=== PATIENT | female | born 1985 | race American Indian/Alaskan Native ===

== ENCOUNTER 2016-11-19 15:20 | Emergency (ER) | payer MEDICAID ==
[2016-11-19 16:07] VITALS: BMI 28.3
[2016-11-19 17:10] LABS: RBC URINE < 1 /hpf (0-3); URINE BACTERIA RARE (<OCC); URINE BILIRUBIN NEGATIVE (NEGATIVE); URINE BLOOD NEGATIVE (NEGATIVE); URINE COLOR Yellow (YELLOW); URINE GLUCOSE (UA) NORMAL (Normal); URINE KETONE NEGATIVE (NEGATIVE); URINE LEUKOCYTE ESTERASE NEG Leu/uL (Negative); URINE PROTEIN NEGATIVE (NEGATIVE); URINE UROBILINOGEN NORMAL mg/dL (0.2-1.0); WBC URINE < 1 /hpf (0-5)
--- NOTE | 2016-11-19 18:26 | OBHP ---
Datetime: 11/19/2016 18:20 IP Adm Impression: , intrauterine ; No Active Labor IP Chief Complaint Other: pelvic pressure IP Adm Impression Other: no care Admit Comment, IP Provider: chief complaint-s/p fall HPI 31 y/o at 30 wga by lmp(unsure) with c/o vaginal pressure.Deneis abdominal pain, vaginal bleeding Denies nausea, vomiting, headache, chest pain, shortness of breath course no care PMH denies PSH csection OBGYN HX ; delivery at 34 weeks via csection Social hx hx of tobacco use prior to prergnancy Exam see exam section A/P 31y/o at 30 wga by lmp -ua nega for nitrtes and le -cervix closed -ultrasound done.patient left AMA due to children's tutor nursery issues Pelvic Type - PN: Adequate Extremities - PN: Normal Abdomen - PN: Normal Back - PN: Normal Lungs - PN: Normal Heart - PN: Normal Neurologic - PN: Normal General - PN: Normal FHR - Baseline A Provider: 130 Contraction Comments Provider: none Vital Signs Provider: Reviewed; Within Normal Limits IP Chief Complaint: Other NICHD Variability Prov Fetus A: Moderate 6-25bpm Dilatation, Provider: 0 Effacement, Provider: thick Station, Provider: -3 Genitourinary Exam: Normal DTRs - PN: Normal
--- NOTE | 2016-11-19 18:27 | US ---
OB , limited ultrasound Comparison: None available Technique: Real-time ultrasound was performed through the pelvis. Findings: There is a single living fetus in cephalic presentation. Amniotic fluid volume is within normal limits. Anterior placenta. The placenta is not previa. There are no adnexal masses or cysts evident. Cervix length measures approximately 3.3 cm. Measurements and calculations: Fetus has a composite sonographic age of 28 weeks 0 days. This calculation is based on the biparietal diameter, head circumference, abdominal circumference, and femur length. Estimated heart rate 156.6 beats per min. KATJA measures approximately 29.5 cm. Impression: Single living fetus with a composite sonographic age of 28 weeks 0 days. Estimated heart rate 156.6 beats per min. KATJA measures approximately 29.5 cm, (Polyhydramnios greater than 25 cm). reservation manager consultation and follow-up as indicated. The study was performed for emergent evaluation, and the whole anatomic survey of the fetus was not performed. This should be performed on an outpatient elective basis as clinically warranted.
== END 2016-11-19 18:15 | disposition left against medical advice (07) ==
LOC: C.EROB 15:20
DX: O9A.213 Injury, poisoning and certain other consequences of external causes complicating pregnancy, third trimester (principal); R10.2 Pelvic and perineal pain; Z3A.30 30 weeks gestation of pregnancy; O09.33 Supervision of pregnancy with insufficient antenatal care, third trimester

== ENCOUNTER 2017-01-29 20:51 | Inpatient (IN) | payer MEDICAID ==
[2017-01-29 21:29] VITALS: BMI 29.2
[2017-01-29] MEDS ORDERED: cefOXitin IV 2 gm in Dextrose 2 GM/50 ML BAG IVPB ONE ×2 (22:17→22:45)
[2017-01-29] MEDS ORDERED: Sodium Citrate/Citric Acid 15 ml Sol PO ONE (22:17)
[2017-01-29 22:29] LABS: HEMATOCRIT 38.1 % (34.0-47.0); MEAN CELL VOLUME 86.6 fL (81.0-99.0); MEAN CORPUSCULAR HEMOGLOBIN 28.1 pg (27.0-31.0); MEAN CORPUSCULAR HGB CONC 32.5 g/dL (33.0-37.0); MEAN PLATELET VOLUME 9.4 fL (7.2-11.7); RED CELL DISTRIBUTION WIDTH 13.6 % (11.5-14.5); WHITE BLOOD COUNT 10.2 K/uL (4.8-10.8)
[2017-01-29] MEDS ORDERED: Lactated Ringer's 1,000 ML IV SCH ×2 (22:30)
[2017-01-29] MEDS ORDERED: Sodium Citrate/Citric Acid 15 ml Sol ONE (22:34)
[2017-01-29 22:38] LABS: CHLORIDE 102 mmol/L (98-107)
[2017-01-29 22:39] LABS: RBC URINE 45 /hpf (0-3); SODIUM 135 mmol/L (132-148); URINE BACTERIA OCC (<OCC); URINE BILIRUBIN NEGATIVE (NEGATIVE); URINE COLOR Yellow (YELLOW); URINE GLUCOSE (UA) NORMAL (Normal); URINE KETONE NEGATIVE (NEGATIVE); URINE LEUKOCYTE ESTERASE 1+ Leu/uL (Negative); URINE PROTEIN 1+ mg/dL (NEGATIVE); WBC URINE 24 /hpf (0-5)
[2017-01-29 22:41] LABS: ALB/GLOB RATIO 1.1 (1.0-2.1); ALKALINE PHOSPHATASE 180 U/L (38-126); AST/SGOT 19 U/L (14-36); BILIRUBIN,TOTAL 0.4 mg/dL (0.2-1.3); BLOOD UREA NITROGEN 9 mg/dL (7-17); CARBON DIOXIDE 22 mmol/L (22-30); GFR AFRICAN-AMERICAN > 60; GLUCOSE,RANDOM 84 mg/dL (65-105); TOTAL PROTEIN 6.5 g/dL (6.3-8.3); URINE BLOOD MODERATE (NEGATIVE)
[2017-01-29 22:42] LABS: ALT/SGPT 18 U/L (9-52); CALCIUM 9.3 mg/dl (8.6-10.4)
[2017-01-29] MEDS ORDERED: Morphine 1 mg/ml preservative-free Inj(Duramorph) ONE (22:53)
[2017-01-29] MEDS ORDERED: ePHEDrine 50 mg/ml Inj ONE (22:55)
--- NOTE | 2017-01-29 22:56 | OBADHP ---
Datetime: 01/29/2017 21:45 IP Chief Complaint Other: Previous C/S Admit Comment, IP Provider: 31 y.o. , LMP unsure, NARESH 02/10/17, EGA 38w 2d c/o SROM 1400 hour s; was waiting for onset of contraction, as she initially desired a TOLAC. When this did not occur, d ecided to come in for evaluation. In Ob-ED, reports (+) AFM; denies VB or Ctx. care: Dr. Kristina nieto; denies any issues. P Ob: 2013, C/S at 37 weeks; "baby wasn't moving" female, 3lb; [facility]. transferre d to [facility]; was in NICU x 2 weeks. Currently, alive and well. Spont Ab x 4, all < 12 weeks ; no D_C. VTOP x 1 @ 16 weeks; 2d procedure with D_E; no complications P CORPSMAN: 15 x monthly x 5 PMH: denies PSH: C/S; D_E NKDA Meds: PNV - QD Soc Hx: denies tobacco, illicit drug or EtOH use. With FOB x 2 years; lives wiht him and her daug hter. 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 Fam Hx: Mother alive 46 y.o. Father alive 52 y.o. - both, no med issues. No known fam h/o cancer P.E.: as above. WD in NAD. Awake, alert, oriented to time, person and place. Pleasant and coopera tive Assessment: 31 y.o. [id number], 38w 2d, prev C/S; PROM. Patient counseled on R/B/C of trial of labor; at time of mention of possible uterine rupture changed her mind. and desires to proceed with "what i s the safest for the baby", and now desires repeat C/S. R/B/C of repeat C/S discussed. All of her qu estions, and those of the FOB were answered. Consents were sigend, dated, signed, witnessed and plac ed in the chart. Soon after this, variable deceleratoin noted. Intrauterine resuscitative measures w ere carried out with good recovery. Traicng now Category 1. Patient last ate at 1800 hours: a few fr ies and chicken wings. Patient is clinically stable. Plan: 1) Admit 2) NPO 3) Admission labs, incl labs 4) IVFs 5) Continuous EFM 6) Notify anesthesia 7) Notify peds 8) Abdominal prep and shave 9) Maza to gravity 10) Mefoxin, protection agent to O.R. 11) Patient protection agent to O.R. - Dr. Carson is aware Pelvic Type - PN: Adequate Extremities - PN: Normal Abdomen - PN: Normal Back - PN: Normal Breast - PN: Not Done Lungs - PN: Normal Heart - PN: Normal Thyroid - PN: Not Done Neurologic - PN: Normal HEENT - PN: Normal General - PN: Normal Presentation-Admit: Vertex FHR - Baseline A Provider: 130 Amniotic Fluid Color, Provider: Clear Membranes, Provider: Ruptured Contraction Comments Provider: infrequent Comments, ACOG Physical Exam: Abdomen: Gravid. Soft. Well-healed Pfannenstiel scar. Fundal height 3 7 cm Perineum: wet. Spec: (+) pooling; (+) nitrazine All other systems reviewed and are negative Gestation - Est Wks by US: 38w 2d Pool Provider: Positive Nitrazine Provider: Positive Vital Signs Provider: Reviewed; Within Normal Limits IP Chief Complaint: Uterine contractions; Suspected ruptured membranes FHR Category Provider Fetus A: Category I NICHD Decel Fetus A IP Provider: Variable Dilatation, Provider: 2 Effacement, Provider: 30 Station, Provider: -3 Genitourinary Exam: Normal DTRs - PN: Not Done EGA AdmitDate IP: 38.2 IP Adm Impression: Term, intrauterine ; No Active Labor; Ruptured Membranes IP Admit Plan: Admit to unit; Initiate Section protocol Datetime: 11/19/2016 18:20 IP Adm Impression Other: no care NICHD Variability Prov Fetus A: Moderate 6-25bpm
[2017-01-29] MEDS ORDERED: Oxytocin 20 units in LR 2,000 ML IV ONE (23:08)
[2017-01-30] MEDS ORDERED: DiphenhydrAMINE 50 mg/ml Inj ONE (00:36)
--- NOTE | 2017-01-30 01:01 | PCM.SURG1 ---
Surgeon's Initial Post Op Note - Surgeon's Notes Surgeon: Dr Carson Logging Tractor Operator Swamp: dR Benitez Type of Anesthesia: Spinal Anesthesia Administered By: dR Zee Pre-Operative Diagnosis: IUP at term with Previous Section, SROM Operative Findings: Live female infant with BW of 1925gms(4Ibs 4ozs), APGARs 9 and 9, delivered in cephalic presentation, fundal placenta. Normal looking uterus, fallopian tubes and ovaries. IVF intake- 1500mls. EBL- 600mls. Urine Output- 300mls Post-Operative Diagnosis: Same as preop diagnosis Operation Performed: Repeat Section Specimen/Specimens Removed: Umbilical cord blood Estimated Blood Loss: EBL {In ML}: 600 Post-Op Condition: Good Date of Surgery/Procedure: 01/30/17 Time of Surgery/Procedure: 01:02
--- NOTE | 2017-01-30 01:17 | OBDS ---
DELIVERY PERSONNEL Delivery Doctor: Karin Carson MD Scrub Nurse: Jesika Duque OBT Beading Sawyer: Leia Kaur RN Anesthesiologist: Dr Zee Resident: n/a MATERNAL INFORMATION Delivery Anesthesia: Spinal Medications in Delivery: pitocin 20 units Estimated Blood Loss (ml): 600 Placenta Cultured: No Maternal Complications: None Provider Comments: Uncomplicated repeat section with delivery of a viable female baby 1925g ms , of 9 and 9. LABOR SUMMARY EDC: 02/10/2017 00:00 MEMBRANES Membranes Rupture Method: Spontaneous Rupture of Membranes: 01/29/2017 14:00 Length of Rupture (hrs): 10.02 STAGES OF LABOR Stage 3 hrs: 0 Stage 3 min: 2 CSECTION DELIVERY Primary Indication: Repeat Elective Secondary Indication: Repeat Elective CSection Urgency: Elective CSection Incidence: Repeat Labor: Labor Elective: Elective CSection Incision: Lower Uterine Transverse BABY A INFORMATION Infant Delivery Date/Time: 01/30/2017 00:01 Method of Delivery: Born in Route : No : N/A Forceps: N/A Vacuum Extraction: N/A Shoulder Dystocia : No SHOULDER DYSTOCIA BABY A Delivery Date/Time: 01/30/2017 00:01 PRESENTATION/POSITION BABY A Presentation: Cephalic Cephalic Presentation: Vertex Vertex Position: Left Occipital Anterior Breech Presentation: N/A PLACENTA INFORMATION BABY A Placenta Delivery Time : 01/30/2017 00:03 Placenta Method of Delivery: Manual Removal Placenta Status: Delivered SCORES BABY A Heart Rate 1 min: >100 bpm Resp Effort 1 min: Good Cry Reflex Irritability 1 min: Cough or Sneeze or Pulls Away Muscle Tone 1 min: Active Motion Color 1 min: Body [place], Extremities Blue Resuscitation Effort 1 min: Tactile Stimulation SCORE 1 MIN: 9 Heart Rate 5 min: >100 bpm Resp Effort 5 min: Good Cry Reflex Irritability 5 min: Cough or Sneeze or Pulls Away Muscle Tone 5 min: Active Motion Color 5 min: Body [place], Extremities Blue Resuscitation Effort 5 min: N/A SCORE 5 MIN: 9 INFORMATION BABY A Gestational Age at Delivery: 38.2 Gestational Status: Term Outcome : Liveborn Condition : Stable Sex: Female IDENTIFICATION/MEDS BABY A ID Band Number: [id number] ID Band Location: Left Leg; Left Arm Sensor Applied: Yes Sensor Number: [id number] Sensor Location : Cord Clamp Vitamin K Given : Not Given Erythromycin Given: Not Given WEIGHT/LENGTH BABY A Infant Birthweight (gms): 1925 Weight (lb): 4 Infant Weight (oz): 4 Length Inches: 17.00 Length cms: 43.2 CORD INFORMATION BABY A No. Cord Vessels: 3 Nuchal Cord : N/A Cord Blood Taken: Yes Infant Suction: Mouth; Nose ASSESSMENT BABY A Infant Complications: None Physical Findings at Delivery: Within Normal Limits Infant Respirations: Appears Normal Inspector Tubes/ALS Called : No Infant Care By: Elizabeth Zamudio RN, Dr Melchor Transferred To: [facility]
[2017-01-30] MEDS ORDERED: DiphenhydrAMINE 50 mg/ml Inj IVP PRN (01:22)
--- NOTE | 2017-01-30 05:44 | OP ---
PROCEDURE DATE: 01/30/2017 PREOPERATIVE DIAGNOSIS: Intrauterine at term with a previous section, spontaneous rupture of membranes. POSTOPERATIVE DIAGNOSIS: Intrauterine at term with a previous section, spontaneous rupture of membranes. PROCEDURE DONE: Repeat low transverse section performed on 01/30/2017. SURGEON: Dr. Saman Carson. SHED WORKERS SUPERVISOR: Dr. Steward. Assistance to this procedure was needed for exposure of tissues and help in the delivery of a baby. The public health training assistant remained through the procedure throughout entirely. TYPE OF ANESTHESIA: Spinal. ANESTHESIA ADMINISTERED BY: Dr. Carter Zee. FINDINGS: Live female with weight of 1925 g, scores of 9 in the first and fifth minutes respectively. Delivered in cephalic presentation. Fundal placenta with a light meconium staining of the amniotic fluid. The uterus as well as both fallopian tubes and both ovaries appeared normal. IV FLUID INTAKE: 1500 mL. ESTIMATED BLOOD LOSS: 600 mL. URINE OUTPUT: 300 mL. COMPLICATIONS: There were no complication. DESCRIPTION OF PROCEDURE: After discussing the risks, benefits, and alternatives of the section as a procedure and having all the questions from the patient answered, the patient was sent to the OR with IV running and Maza catheter in place. The patient was sat on the OR table and after adequate spinal anesthesia was put in the supine position with a left lateral tilt. The patient was then prepped and draped in the sterile fashion. A Pfannenstiel skin incision was made through the old Pfannenstiel incisional scar using a scalpel and this incision was extended to the subcutaneous tissues through the rectus fascia where a transverse incision was made. The fascial incision was extended to both sides with the help of a Bovie device. The rectus fascia was then lifted up from the underlying rectus muscles, both superiorly and inferiorly by means of a blunt dissection and a sharp dissection with a Flores scissors. The rectus muscle was in the midline to expose the peritoneum, which was carefully ended using a Metzenbaum scissors and with good visualization of the bladder. Once the abdominal cavity was entered, the vesicouterine fold of peritoneum was identified, was carefully dissected and retracted inferiorly to expose the lower uterine segment. A low-transverse incision into the uterine muscle was made using the scalpel at the lower uterine segment. The scalpel was sent through the myometrial layer where the amniotic membranes were identified. The incision was then extended to both sides in a blunt fashion. The amniotic membranes were ruptured using the pickup forceps where the baby in cephalic presentation was identified and delivered. The mouth and nostrils were bulb suctioned after delivery and the umbilical cord was clamped and cut. The baby was then given to the nurse. Baby cried immediately after . Umbilical cord blood for analysis was obtained at this point and the placenta was manually removed from the uterine cavity. The uterus was then brought out of the abdominal cavity and the uterus cleaned of all debris using dry laparotomy buds. The uterine incision was then closed in two layers using Vicryl #0. The first layer in a ong-yst-zudl fashion and the second layer in a running fashion imbricating the first layer. Once hemostasis was done after repair of the incision, irrigation of the pelvis with warm saline was performed. The uterus was then returned into the abdominal cavity. Once hemostasis was reassured again, attention was turned on to the anterior abdominal wall, which was closed in layers with 2-0 Vicryl for the peritoneum and the rectus muscles. The rectus fascia was brought together by means of #0 Vicryl. The subcutaneous tissue was re-approximated using #2-0 plain. The skin was closed in the subcuticular fashion using #4-0 Biosyn. All counts of instruments, laparotomy pads, and needles used were correct x3 and the patient was sent to the recovery room awake and in stable condition. Saman Carson MD
[2017-01-30] MEDS: cefOXitin IV 2 gm in Dextrose 2 GM/50 ML BAG IVPB SCH ×3 (08:29→23:47)
[2017-01-30] MEDS: Simethicone 80 mg Chewtab PO SCH ×4 (15:06→21:41)
[2017-01-30] MEDS: Prenatal Multivit/Folic Acid/Iron Tab PO SCH (15:07)
[2017-01-31] MEDS: Simethicone 80 mg Chewtab PO SCH ×4 (09:47→21:47)
[2017-01-31] MEDS: Prenatal Multivit/Folic Acid/Iron Tab PO SCH (09:47)
[2017-01-31 11:44] LABS: BASO % 0.2 % (0.0-2.0); EOS # 0.3 K/uL (0.0-0.7); EOS % 2.8 % (0.0-4.0); HEMATOCRIT 36.6 % (34.0-47.0); LYMPH # 1.3 K/uL (1.0-4.3); LYMPH % 12.3 % (20.0-40.0); MEAN CELL VOLUME 87.3 fL (81.0-99.0); MEAN CORPUSCULAR HEMOGLOBIN 28.4 pg (27.0-31.0); MEAN CORPUSCULAR HGB CONC 32.5 g/dL (33.0-37.0); MEAN PLATELET VOLUME 8.8 fL (7.2-11.7); MONO # 0.6 K/uL (0.0-0.8); MONO % 5.4 % (0.0-10.0); NRBC % 0.1 % (0.0-2.0); RED CELL DISTRIBUTION WIDTH 13.6 % (11.5-14.5); WHITE BLOOD COUNT 10.5 K/uL (4.8-10.8)
[2017-01-31 16:03] VITALS: O2SAT 100
--- NOTE | 2017-02-01 08:45 | OBPPN ---
Datetime: 01/30/2017 08:42 PP Pain Prov: Within normal limits PP Nausea Prov: Denies PP Flatus Prov: Yes PP Breasts Prov: Normal PP Heart Prov: Normal PP Lungs Prov: Normal PP Abdomen/Uterus Prov: Normal PP Lochia Prov: Normal PP Vulva/Perineum Prov: Normal PP CVA Tenderness Prov: Normal PP Extremities Prov: Normal PP C/S Incision Prov: Normal PP Progress Prov: Normal PP Comments Phys Exam Prov: Abd: Soft, NT, BS- present Ut- Firm Incision: Clean and dry. PP Impression Prov: Normal progression PP Plan Prov: Continue present management PP Progress Note Prov: S/P Repeat Section, POD #1, Clinically Stable. Plan: Continue care. Vital Signs Provider PP: Reviewed
--- NOTE | 2017-02-01 08:49 | OBPPN ---
Datetime: 01/31/2017 08:47 PP Pain Prov: Within normal limits PP Nausea Prov: Denies PP Flatus Prov: Yes PP Breasts Prov: Normal PP Heart Prov: Normal PP Lungs Prov: Normal PP Abdomen/Uterus Prov: Normal PP Lochia Prov: Normal PP Vulva/Perineum Prov: Normal PP CVA Tenderness Prov: Normal PP Extremities Prov: Normal PP C/S Incision Prov: Normal PP Progress Prov: Normal PP Comments Phys Exam Prov: Abd: Soft, NT, BS present UT- firm Incision: Clean and dry PP Impression Prov: Normal progression PP Plan Prov: Continue present management Vital Signs Provider PP: Reviewed
--- NOTE | 2017-02-01 08:52 | OBPPN ---
Datetime: 02/01/2017 08:50 PP Pain Prov: Within normal limits PP Nausea Prov: Denies PP Flatus Prov: Yes PP Breasts Prov: Normal PP Heart Prov: Normal PP Lungs Prov: Normal PP Abdomen/Uterus Prov: Normal PP Lochia Prov: Normal PP Vulva/Perineum Prov: Normal PP CVA Tenderness Prov: Normal PP Extremities Prov: Normal PP Comments Phys Exam Prov: Abd: Soft, NT BS -present. UT- firm Incision: clean and dry Datetime: 01/31/2017 08:47 PP Progress Note Prov: S/P Section, POD#2 Clinically Stable. Plan: Continue care.
--- NOTE | 2017-02-01 08:55 | OBDCSUM ---
Datetime: 02/01/2017 08:43 Discharged to, Provider: Home Follow up at, Provider: dr anaya Disch Instr Activity: Normal activity; May Shower Disch Instr Diet: Regular Discharge Diet restrict Prov: none Discharge Instructions, Provider: Routine instructions given Discharge Diagnosis, Provider: Term Delivered Discharge Time: 02/01/2017 09:00 Follow up in weeks, Provider: 2weeks Disch Referrals: None Contraception discussed, Prov: Yes Disch Activity Restrictions: No exercising; No lifting; No sexual activity; Nothing in vagina - Inte rcourse, tampons, douche Discharge Comment, Provider: S/P Uncomplicated repeat section, Clinically Stable Discharge Diagnosis Prov Other: S/P Uncomplicated repeat section, Clinically Stable
--- NOTE | 2017-02-01 08:55 | OBPPN ---
Datetime: 02/01/2017 08:50 PP C/S Incision Prov: Normal PP Progress Prov: Normal PP Impression Prov: Normal progression PP Plan Prov: Discharge PP Progress Note Prov: s/p Repeat Section, Clinically Stable. Plan: D/c Home.
[2017-02-01] MEDS: Prenatal Multivit/Folic Acid/Iron Tab PO SCH (09:15)
[2017-02-01] MEDS: Simethicone 80 mg Chewtab PO SCH (09:15)
[2017-02-01 15:54] VITALS: BP 124/79; PULSE 83; RESP 18; TEMP 97.6
== END 2017-02-01 11:51 | disposition home or self-care (01) | DRG 651 ==
LOC: C.EROB 20:51 → UNDOADMIN 21:56 → C.4D 21:56 → C.4M 01-30 05:30
PROVIDERS: ADMIT Obstetrics & Gynecology; ATTEND Obstetrics & Gynecology
PROC: 10D00Z1 Extraction of Products of Conception, Low, Open Approach (ICD-10-PCS; principal; 2017-01-30)
DX: O42.02 Full-term premature rupture of membranes, onset of labor within 24 hours of rupture (principal); O75.82 Onset (spontaneous) of labor after 37 completed weeks of gestation but before 39 completed weeks gestation, with delivery by (planned) cesarean section; O34.211 Maternal care for low transverse scar from previous cesarean delivery; Z3A.38 38 weeks gestation of pregnancy; Z37.0 Single live birth